=== PATIENT | male | born 1955 | race Caucasian/White ===

== ENCOUNTER 2017-09-06 10:23 | Emergency (ER) | payer OTHER, SELFPAY ==
[2017-09-06 10:30] VITALS: BP 174/84; PULSE 68; RESP 17; TEMP 35.9; O2SAT 99; BMI 24.1
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
== END 2017-09-06 11:08 | disposition home or self-care (01) ==
PROVIDERS: Emergency Provider Emergency Medicine; Family Provider Family Medicine; PCP Family Medicine
DX: M54.5 Low back pain (principal); V49.9XXA Car occupant (driver) (passenger) injured in unspecified traffic accident, initial encounter
CPT/HCPCS: 99282

== ENCOUNTER → 2017-09-10 10:12 | Outpatient (CLI) | payer OTHER, SELFPAY ==
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
== END ==
PROVIDERS: PCP Family Medicine; Visit Provider Family Medicine
DX: M50.30 Other cervical disc degeneration, unspecified cervical region (principal); M25.562 Pain in left knee; M17.12 Unilateral primary osteoarthritis, left knee; M51.36 Other intervertebral disc degeneration, lumbar region; M47.817 Spondylosis without myelopathy or radiculopathy, lumbosacral region; M54.9 Dorsalgia, unspecified
CPT/HCPCS: 72040; 72100; 73562

== ENCOUNTER → 2017-09-30 12:59 | Outpatient (CLI) | payer OTHER, SELFPAY ==
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
== END ==
PROVIDERS: PCP Family Medicine; Visit Provider Family Medicine
DX: M51.34 Other intervertebral disc degeneration, thoracic region (principal); M54.9 Dorsalgia, unspecified
CPT/HCPCS: 72072

== ENCOUNTER → 2017-12-08 09:12 | Outpatient (CLI) | payer OTHER, SELFPAY ==
[2017-12-08 10:19] LABS: Hemoglobin A1C% w Est Avg Glu 6.8 % (4.0-6.0)
== END ==
PROVIDERS: PCP Family Medicine; Visit Provider Family Medicine
DX: E11.9 Type 2 diabetes mellitus without complications (principal)
CPT/HCPCS: 36415; 83036

== ENCOUNTER 2017-12-18 13:00 | Outpatient (RCR) | payer OTHER, SELFPAY ==
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
== END 2018-04-21 12:24 ==
LOC: PHYS 13:00
PROVIDERS: Family Provider Family Medicine; PCP Family Medicine; Visit Provider Family Medicine
DX: S39.92XA Unspecified injury of lower back, initial encounter (principal); M25.569 Pain in unspecified knee; V89.2XXA Person injured in unspecified motor-vehicle accident, traffic, initial encounter
CPT/HCPCS: 97010; 97014; 97035; 97110; 97140; 97162; 97535; G0283

== ENCOUNTER → 2018-06-17 10:16 | Outpatient (CLI) | payer OTHER, SELFPAY ==
[2018-06-17 12:10] LABS: Add Manual Diff / Slide Review NO; Basophils Absolute Auto 0 /uL (0-100); Basophils Percent Auto 0.3 % (0-2); Eosinophils Absolute Auto 200 /uL (0-450); Eosinophils Percent Auto 2.3 % (2-4); Hematocrit 42.8 % (41-53); Hemoglobin 14.3 g/dL (13.5-17.5); Lymphocytes Absolute Auto 1700 /uL (1100-4500); Lymphocytes Percent Auto 25.1 % (25-40); Mean Corpuscular HGB Conc 33.5 % (30-36); Mean Corpuscular Volume 86.7 fL (80-100); Monocytes Absolute Auto 500 /uL (0-900); Monocytes Percent Auto 6.7 % (3-14); Neutrophils Absolute Auto 4500 /uL (1500-7000); Neutrophils Percent Auto 65.6 % (50-75); Platelet Count 224 X10^3/uL (150-400); Red Blood Cell Count 4.94 X10^6/uL (4.5-5.9); Red Cell Distribution Width 13.7 % (11.6-14.8); White Blood Cell Count 6.8 X10^3/uL (4.5-11.0)
[2018-06-17 12:45] LABS: Hemoglobin A1C% w Est Avg Glu 6.5 % (4.0-6.0)
[2018-06-17 12:47] LABS: Alanine Aminotransferase 48 IU/L (21-72); Albumin 4.5 g/dL (3.5-5.0); Alkaline Phosphatase 46 U/L (38-126); Aspartate Aminotransferase 34 IU/L (17-59); BUN Creatinine Ratio 28.9 (6-22); Bilirubin Total 0.6 mg/dL (0.2-1.3); Blood Urea Nitrogen 26 mg/dL (9-20); Calcium 9.5 mg/dL (8.4-10.2); Carbon Dioxide 28 mmol/L (22-32); Chloride 101 mmol/L (98-107); Cholesterol 208 mg/dL (140-199); Estimated Glomerular Filt Rate > 60.0 mL/min (>60); Globulin 2.3 g/dL (1.7-4.1); Glucose 137 mg/dL (80-110); HDL Cholesterol 51 mg/dL (40-60); HEMOLYSIS < 15 (0-50); LDL Cholesterol Calculated 131 mg/dL (<100); Sodium 138 mmol/L (137-145); Total Protein 6.8 g/dL (6.3-8.2); Triglycerides 128 mg/dL (35-150)
[2018-06-17 13:06] LABS: Prostate Specific Antigen Scrn 1.79 ng/mL (0.1-4.0); TSH w/ Reflex to FT4 1.57 uIU/mL (0.47-4.68)
== END ==
PROVIDERS: Family Provider Family Medicine; PCP Family Medicine; Visit Provider Family Medicine
DX: E11.9 Type 2 diabetes mellitus without complications (principal); I10 Essential (primary) hypertension; Z12.5 Encounter for screening for malignant neoplasm of prostate; Z13.29 Encounter for screening for other suspected endocrine disorder
CPT/HCPCS: 36415; 80053; 80061; 83036; 84443; 85025; G0103

== ENCOUNTER → 2018-11-19 13:59 | Outpatient (CLI) | payer OTHER, SELFPAY ==
[2018-11-19 14:35] LABS: Hemoglobin A1C% w Est Avg Glu 7.8 % (4.0-6.0)
== END ==
PROVIDERS: PCP Family Medicine; Visit Provider Family Medicine
DX: E11.9 Type 2 diabetes mellitus without complications (principal)
CPT/HCPCS: 36415; 83036

== ENCOUNTER → 2018-12-16 13:07 | Outpatient (CLI) | payer OTHER, SELFPAY | PROVIDERS: PCP Family Medicine; Visit Provider Family Medicine | DX: E29.1 Testicular hypofunction (principal) | CPT/HCPCS: 36415; 84403 ==

== ENCOUNTER → 2019-02-05 10:06 | Outpatient (CLI) | payer OTHER, SELFPAY ==
[2019-02-05 11:30] LABS: Hemoglobin A1C% w Est Avg Glu 7.8 % (4.0-6.0)
== END ==
PROVIDERS: PCP Family Medicine; Visit Provider Family Medicine
DX: E11.9 Type 2 diabetes mellitus without complications (principal)
CPT/HCPCS: 36415; 83036

== ENCOUNTER → 2019-08-20 10:03 | Outpatient (CLI) | payer MEDICARE, SELFPAY ==
[2019-08-20 10:44] LABS: Add Manual Diff / Slide Review NO; Basophils Absolute Auto 0 /uL (0-100); Basophils Percent Auto 0.3 % (0-2); Eosinophils Absolute Auto 200 /uL (0-450); Eosinophils Percent Auto 2.7 % (2-4); Hematocrit 39.8 % (41-53); Hemoglobin 13.6 g/dL (13.5-17.5); Lymphocytes Absolute Auto 1800 /uL (1100-4500); Lymphocytes Percent Auto 25.4 % (25-40); Mean Corpuscular HGB Conc 34.1 % (30-36); Mean Corpuscular Volume 84.8 fL (80-100); Monocytes Absolute Auto 600 /uL (0-900); Monocytes Percent Auto 7.8 % (3-14); Neutrophils Absolute Auto 4600 /uL (1500-7000); Neutrophils Percent Auto 63.8 % (50-75); Platelet Count 211 X10^3/uL (150-400); Red Cell Distribution Width 12.8 % (11.6-14.8); White Blood Cell Count 7.3 X10^3/uL (4.5-11.0)
[2019-08-20 11:25] LABS: Hemoglobin A1C% w Est Avg Glu 8.5 % (4.0-6.0)
[2019-08-20 11:32] LABS: Alanine Aminotransferase 27 IU/L (<50); Albumin 4.1 g/dL (3.5-5.0); Albumin Globulin Ratio 1.5 (1.0-2.8); Alkaline Phosphatase 69 U/L (38-126); Aspartate Aminotransferase 27 IU/L (17-59); BUN Creatinine Ratio 31.9 (6-22); Bilirubin Total 0.6 mg/dL (0.2-1.3); Blood Urea Nitrogen 36 mg/dL (9-20); Calcium 9.6 mg/dL (8.4-10.2); Carbon Dioxide 24 mmol/L (22-32); Chloride 105 mmol/L (98-107); Cholesterol 183 mg/dL (140-199); Estimated Glomerular Filt Rate > 60.0 mL/min (>60); Globulin 2.8 g/dL (1.7-4.1); Glucose 273 mg/dL (80-110); HDL Cholesterol 42 mg/dL (40-60); HEMOLYSIS < 15 (0-50); LDL Cholesterol Calculated 110 mg/dL (<100); Potassium 5.1 mmol/L (3.4-5.1); Sodium 137 mmol/L (137-145); Total Protein 6.9 g/dL (6.3-8.2); Triglycerides 156 mg/dL (35-150)
== END ==
PROVIDERS: PCP Family Medicine; Referring Provider Family Medicine; Visit Provider Family Medicine
DX: E11.9 Type 2 diabetes mellitus without complications (principal); I10 Essential (primary) hypertension
CPT/HCPCS: 36415; 80053; 80061; 82565; 83036; 84520; 85025

== ENCOUNTER → 2019-11-29 13:15 | Outpatient (CLI) | payer MEDICARE, SELFPAY ==
[2019-11-29 14:24] LABS: Hemoglobin A1C% w Est Avg Glu 9.2 % (4.0-6.0)
[2019-11-29 14:27] LABS: Blood Urea Nitrogen 25 mg/dL (9-20); Calcium 9.4 mg/dL (8.4-10.2); Carbon Dioxide 27 mmol/L (22-32); Chloride 101 mmol/L (98-107); Estimated Glomerular Filt Rate > 60.0 mL/min (>60); Glucose 261 mg/dL (80-110); HEMOLYSIS < 15 (0-50); Sodium 136 mmol/L (137-145)
[2019-11-29 14:28] LABS: Potassium 5.5 mmol/L (3.4-5.1)
== END ==
PROVIDERS: PCP Family Medicine; Referring Provider Family Medicine; Visit Provider Family Medicine
DX: E11.9 Type 2 diabetes mellitus without complications (principal)
CPT/HCPCS: 36415; 80048; 83036

== ENCOUNTER → 2020-06-02 15:04 | Outpatient (CLI) | payer MEDICARE, SELFPAY ==
[2020-06-02 17:04] LABS: Hemoglobin A1C% w Est Avg Glu 6.7 % (4.0-6.0)
== END ==
PROVIDERS: PCP Family Medicine; Referring Provider Family Medicine; Visit Provider Family Medicine
DX: E11.9 Type 2 diabetes mellitus without complications (principal)
CPT/HCPCS: 36415; 83036

== ENCOUNTER → 2020-07-13 16:04 | Outpatient (CLI) | payer MEDICARE, SELFPAY ==
[2020-07-13] MEDS: COVID-19 VACC #1, MRNA(MOD) 100 MCG/0.5 ML VIAL IM (16:09)
== END ==
PROVIDERS: PCP Family Medicine; Visit Provider Internal Medicine
DX: Z23 Encounter for immunization (principal)
CPT/HCPCS: 0011A; 91301

== ENCOUNTER → 2020-08-09 15:00 | Outpatient (CLI) | payer MEDICARE, SELFPAY ==
[2020-08-09] MEDS: COVID-19 VACC #2, MRNA(MOD) 100 MCG/0.5 ML VIAL IM (15:11)
== END ==
PROVIDERS: PCP Family Medicine; Visit Provider Internal Medicine
DX: Z23 Encounter for immunization (principal)
CPT/HCPCS: 0012A; 91301

== ENCOUNTER → 2020-11-23 14:09 | Outpatient (CLI) | payer MEDICARE, SELFPAY ==
[2020-11-23 16:16] LABS: Add Manual Diff / Slide Review NO; Basophils Absolute Auto 0 /uL (0-100); Basophils Percent Auto 0.4 % (0-2); Eosinophils Absolute Auto 100 /uL (0-450); Eosinophils Percent Auto 1.6 % (2-4); Hematocrit 38.8 % (41-53); Hemoglobin 12.6 g/dL (13.5-17.5); Lymphocytes Absolute Auto 1500 /uL (1100-4500); Lymphocytes Percent Auto 15.8 % (25-40); Mean Corpuscular HGB Conc 32.4 % (30-36); Mean Corpuscular Hemoglobin 27.5 PG (26-34); Monocytes Absolute Auto 700 /uL (0-900); Monocytes Percent Auto 7.4 % (3-14); Neutrophils Absolute Auto 6900 /uL (1500-7000); Neutrophils Percent Auto 74.8 % (50-75); Platelet Count 231 X10^3/uL (150-400); Red Blood Cell Count 4.56 X10^6/uL (4.5-5.9); Red Cell Distribution Width 12.6 % (11.6-14.8); White Blood Cell Count 9.3 X10^3/uL (4.5-11.0)
[2020-11-23 16:25] LABS: Hemoglobin A1C% w Est Avg Glu 9.6 % (4.0-6.0)
[2020-11-23 16:28] LABS: Alanine Aminotransferase 31 IU/L (<50); Albumin 4.5 g/dL (3.5-5.0); Albumin Globulin Ratio 1.6 (1.0-2.8); Alkaline Phosphatase 103 U/L (38-126); Aspartate Aminotransferase 31 IU/L (17-59); BUN Creatinine Ratio 15.7 (6-22); Bilirubin Total 0.5 mg/dL (0.2-1.3); Blood Urea Nitrogen 28 mg/dL (9-20); Calcium 9.6 mg/dL (8.4-10.2); Carbon Dioxide 21 mmol/L (22-32); Chloride 102 mmol/L (98-107); Cholesterol 247 mg/dL (140-199); Estimated Glomerular Filt Rate 38.8 mL/min (>60); Globulin 2.8 g/dL (1.7-4.1); Glucose 311 mg/dL (80-110); HDL Cholesterol 46 mg/dL (40-60); HEMOLYSIS < 15 (0-50); LDL Cholesterol Calculated 131 mg/dL (<100); Sodium 132 mmol/L (137-145); Total Protein 7.3 g/dL (6.3-8.2); Triglycerides 350 mg/dL (35-150)
[2020-11-23 16:29] LABS: Potassium 5.7 mmol/L (3.4-5.1)
[2020-11-23 16:33] LABS: Creatinine Urine Random 106.4 mg/dL
[2020-11-23 16:47] LABS: Microalbumin Urine Random < 0.6 mg/dL (0-1.6)
== END ==
PROVIDERS: PCP Family Medicine; Referring Provider Family Medicine; Visit Provider Family Medicine
DX: E11.9 Type 2 diabetes mellitus without complications (principal); Z79.4 Long term (current) use of insulin; E78.5 Hyperlipidemia, unspecified
CPT/HCPCS: 36415; 80053; 80061; 82043; 82570; 83036; 85025

== ENCOUNTER → 2021-02-01 15:44 | Outpatient (CLI) | payer MEDICARE, SELFPAY ==
[2021-02-01 17:37] LABS: Hematocrit 42.2 % (41-53); Hemoglobin 13.7 g/dL (13.5-17.5); Mean Corpuscular HGB Conc 32.5 % (30-36); Mean Corpuscular Hemoglobin 27.6 PG (26-34); Mean Corpuscular Volume 84.9 fL (80-100); Platelet Count 297 X10^3/uL (150-400); Red Blood Cell Count 4.97 X10^6/uL (4.5-5.9); Red Cell Distribution Width 14.7 % (11.6-14.8); White Blood Cell Count 8.8 X10^3/uL (4.5-11.0)
== END ==
PROVIDERS: PCP Family Medicine; Referring Provider Family Medicine; Visit Provider Family Medicine
DX: D64.9 Anemia, unspecified (principal); E11.9 Type 2 diabetes mellitus without complications; N17.9 Acute kidney failure, unspecified
CPT/HCPCS: 36415; 85027

== ENCOUNTER → 2021-03-07 12:25 | Outpatient (CLI) | payer MEDICARE, SELFPAY ==
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
== END ==
PROVIDERS: PCP Family Medicine; Referring Provider Family Medicine; Visit Provider Family Medicine
DX: E11.9 Type 2 diabetes mellitus without complications (principal); Z79.84 Long term (current) use of oral hypoglycemic drugs
CPT/HCPCS: 97802

== ENCOUNTER → 2021-03-21 16:02 | Outpatient (CLI) | payer MEDICARE, SELFPAY ==
[2021-03-21 17:13] LABS: Hemoglobin A1C% w Est Avg Glu 7.8 % (4.0-6.0)
[2021-03-21 17:41] LABS: BUN Creatinine Ratio 14.1 (6-22); Blood Urea Nitrogen 22 mg/dL (9-20); Calcium 9.9 mg/dL (8.4-10.2); Carbon Dioxide 27 mmol/L (22-32); Chloride 104 mmol/L (98-107); Estimated Glomerular Filt Rate 45.2 mL/min (>60); Glucose 182 mg/dL (80-110); HEMOLYSIS < 15 (0-50); Potassium 4.9 mmol/L (3.4-5.1); Sodium 138 mmol/L (137-145)
== END ==
PROVIDERS: PCP Family Medicine; Referring Provider Family Medicine; Visit Provider Family Medicine
DX: E11.9 Type 2 diabetes mellitus without complications (principal); N17.9 Acute kidney failure, unspecified; Z79.4 Long term (current) use of insulin
CPT/HCPCS: 36415; 80048; 83036

== ENCOUNTER → 2021-03-28 14:01 | Outpatient (CLI) | payer MEDICARE, SELFPAY ==
--- NOTE | 2021-04-03 13:22 | DIAB.FU ---
Follow-up Diabetes Education Assessment Name: Chavo Bates Date: 03/28/21 Time: 205-320p Dx: Type II Diabetes Vinecnt presents for DM follow-up with his , Kalyn. New BG indicate improved GFR while on Jardiance. Seems likely the SGLT2i helped improve his GFR. Despite this Vincent is interested in trying to d/c this medication. States he has reduced carb intake via fruit at night as discussed. Has questions about having a post exercise protein shake, protein is whey based and has added potassium and phos. Vincent tells me the CKD is most bothersome to him, more so than the DM. States he would like to know what he can do to improve kidney labs. Goes long periods of time without eating during the day per Kalyn . Physical Activity: Has begun an exercise program 4 days per week of 20-30 min of bike, 15-20min rower, + resistance exercise. Vincent is very motivated. Kalyn endorses feeling as though this is sustainable currently, but may not be over LT. [facility] will create a plan with Vincent to support his goals over the LT. Self-Monitoring Blood Glucose: BG have improved, but still having elevations. All FBG above ADA goal of 130 mg/dL. 2 significant other elevations. FB, 158, 165, 194, 172, 190, 133 Other readings, uncertain if pc or ac: 158, 155, 204, 15, 139, 138, 161, 188, 178 Diabetes Medications: Metformin 1000 BID Jardiance 10mg Pertinent Labs: Improved kidney labs and HgA1c. 03/2021 Cr: 1.56 H (improved) HgA1c: 7.8% H (improved) eGFR: 45.2 L (improved) 11/2020 HgA1c 9.6% H eGFR: 38.8 L Cr: 1.78 H k: 5.7 H T H cholesterol: 247 H LDL: 131 H Past Medical History: (Last Reviewed 12/01/17 @ 11:52 by Yani Pereira LPN) Ankle pain Anxiety Chicken pox Chronic back pain Depression (2009) Diabetes mellitus (2006) Resolved after weight loss Fractures Gout (1997) Hearing loss History of hand surgery (2000) Left Hyperlipidemia Hypogonadism Lumbar spine pain Osteoarthritis PTSD (post-traumatic stress disorder) (2014) Shoulder pain Status post surgical manipulation of ankle joint (2001) Right Tinnitus Intervention: This participant was very receptive. Provided appropriate educational handouts. Discussed the following topics: Recent blood sugar results and trends Medication management. Benefits of Jardiance for kidney and DM health. Review of general nutrition recommendations and current intake Physical activity plan and impact on blood sugars. Making it sustainable. Anticipating potential barriers. Animal proteins vs plant based for kidney health Label reading Kidney health: sodium intake, no need to restrict potassium or phos unless elevated but best to get from whole foods heart healthy fats Created SMART goals for patient self-care and success. Goals: Bring log book next visit- met Reduce fruit portion at evening snack- met Read food labels- in progress Check FBG and pc- new Food journal 1-2 days- new Follow-up: FUNMILAYO BROOKE follow-up in 4 weeks. Will focus more on nutrition next visit per his request. Rhonda Pierce RDN, CDCES Certified Diabetes Care and Two Needle Machine Operator P: [phone] Thank you for this referral
== END ==
PROVIDERS: PCP Family Medicine; Referring Provider Family Medicine; Visit Provider Family Medicine
DX: E11.9 Type 2 diabetes mellitus without complications (principal); Z79.84 Long term (current) use of oral hypoglycemic drugs
CPT/HCPCS: G0108

== ENCOUNTER → 2021-05-09 13:41 | Outpatient (CLI) | payer MEDICARE, SELFPAY ==
--- NOTE | 2021-05-10 16:59 | DIAB.MNTFU ---
Follow-up Diabetes Medical Nutrition Therapy Assessment Name: Chavo Bates Date: 05/09/21 Time: 210-310p Dx: Type II Diabetes Vincent presents for follow-up visit regarding T2DM with his , Kalyn. Kalyn expresses some reasonable concern about the amount of weight Vincent has lost. He endorses a 16# loss since March, mostly r/t being sick mid-March. This weight loss is equivalent to 8.7% since March, which is significant. Further, he displays physical signs of muscle wasting in temporal, clavicle, shoulder and interosseous regions, upon nutrition focused physical exam. Seems he is experiencing acute protein calorie malnutrition. Vincent is very motivated in his physical activity, however his nutritional intake seems below recommendation. Per his documentation, he often eats little or nothing in the morning. Most eating occurrences include 1-3 snacks and perhaps 1-2 meals per day. He may only eat twice per day, small portions. States the main barrier is his pain. He does not want to stand long to make food. He does not want to make a mess to clean. Also, he has limited appetite. Kalyn has been trying to cook more of his favorite meals to help increase intake. Having protein shake, but this brand is expensive. Use to keep a pain journal and felt this helped. Unsure if he wants to restart this. Feels motivated to increase muscle mass with physical activity. Anthropometrics: Ht: 6'2 Wt: 168# (reported) Physical Activity: Gym 4 days per week Self-Monitoring Blood Glucose: Recent readings trending down. He is concerned about his meter reliability. Has had this meter for >2 years. Recent FB, 141, 147, 136, 125, 140. Bolded elevated readings per ADA guidelines, but these are certainly an improvement from last visit. Recent readings later in the day: 122, 100, 169, 114, 136, 147, 136, 156. Diabetes Medications: Metformin 1000 BID Jardiance 10mg Pertinent Labs: 03/2021 Cr: 1.56 H (improved) HgA1c: 7.8% H (improved) eGFR: 45.2 L (improved) Past Medical History: (Last Reviewed 12/01/17 @ 11:52 by Yani Pereira LPN) Ankle pain Anxiety Chicken pox Chronic back pain Depression (2009) Diabetes mellitus (2006) Resolved after weight loss Fractures Gout (1997) Hearing loss History of hand surgery (2000) Left Hyperlipidemia Hypogonadism Lumbar spine pain Osteoarthritis PTSD (post-traumatic stress disorder) (2014) Shoulder pain Status post surgical manipulation of ankle joint (2001) Right Tinnitus Nutrition Rx: Carbohydrates: Meal:45g Snack:15-30g Saturated fat: 13g or less daily Sodium: 8291-0872 mg daily Nutrition Diagnosis: - Inconsistent carb intake r/t nutrition related knowledge deficit and appetite changes aeb diet recall of high and low carb intake and pt report- in progress - Predicted excessive saturated fat intake r/t nutrition knowledge deficit aeb diet recall - improved - Severe acute protein calorie malnutrition r/t limited kcal intake, increased activity, and recent illness aeb notable muscle wasting, 8.7% weight loss in <2 months, and pt report Intervention: This participant was very receptive. Provided appropriate educational handouts. Discussed the following topics: Blood sugar review and trends. Barriers to adequate protein kcal intake Importance of nutrition for muscle retention and building Recs on carb intake Journaling and pain management that has worked in the past Physical activity plan and progress Created SMART goals for patient self-care and success. Goals: Check FBG and pc- met Food journal 1-2 days- met Cont food journal- new Get a new meter rx- new Aim for consistent food intake, at least 3 eating occurrences per day- new Follow-up: FUNMILAYO BROOKE follow-up in 3-4 weeks Rhonda Pierce RDN, [facility]WARD[facility] Certified Diabetes Care and [employer] P: [phone] Thank you for this referral
== END ==
PROVIDERS: PCP Family Medicine; Referring Provider Family Medicine; Visit Provider Family Medicine
DX: E11.9 Type 2 diabetes mellitus without complications (principal); E43 Unspecified severe protein-calorie malnutrition; Z79.84 Long term (current) use of oral hypoglycemic drugs; Z71.3 Dietary counseling and surveillance; Z68.21 Body mass index [BMI] 21.0-21.9, adult
CPT/HCPCS: 97803

== ENCOUNTER → 2021-06-13 10:59 | Outpatient (CLI) | payer MEDICARE, SELFPAY ==
[2021-06-13 11:41] LABS: Hemoglobin A1C% w Est Avg Glu 6.5 % (4.0-6.0)
[2021-06-13 12:25] LABS: Phosphorous 2.8 mg/dL (2.3-3.7)
== END ==
PROVIDERS: PCP Family Medicine; Referring Provider Family Medicine; Visit Provider Family Medicine
DX: E11.9 Type 2 diabetes mellitus without complications (principal); D64.9 Anemia, unspecified; N17.9 Acute kidney failure, unspecified; Z79.4 Long term (current) use of insulin
CPT/HCPCS: 36415; 83036; 84100

== ENCOUNTER → 2022-01-30 11:58 | Outpatient (CLI) | payer MEDICARE, SELFPAY ==
[2022-01-30 12:40] LABS: Hemoglobin A1C% w Est Avg Glu 8.2 % (4.0-6.0)
[2022-01-30 13:13] LABS: Prostate Specific Antigen Scrn 1.93 ng/mL (0.1-4.0)
== END ==
PROVIDERS: PCP Family Medicine; Referring Provider Family Medicine; Visit Provider Family Medicine
DX: E11.9 Type 2 diabetes mellitus without complications (principal); Z12.5 Encounter for screening for malignant neoplasm of prostate; I10 Essential (primary) hypertension; Z79.4 Long term (current) use of insulin
CPT/HCPCS: 36415; 83036; G0103

== ENCOUNTER → 2022-05-03 10:19 | Outpatient (CLI) | payer MEDICARE, SELFPAY ==
[2022-05-03 12:02] LABS: Hemoglobin A1C% w Est Avg Glu 7.6 % (4.0-6.0)
[2022-05-03 12:15] LABS: Cholesterol 119 mg/dL (140-199); HDL Cholesterol 36 mg/dL (40-60); LDL Cholesterol Calculated 59 mg/dL (<100); Triglycerides 118 mg/dL (35-150)
[2022-05-03 12:16] LABS: Creatinine Urine Random 183.7 mg/dL
[2022-05-03 12:21] LABS: Microalbumin Urine Random 2.4 mg/dL (0-1.6)
== END ==
PROVIDERS: PCP Family Medicine; Referring Provider Family Medicine; Visit Provider Family Medicine
DX: E11.8 Type 2 diabetes mellitus with unspecified complications (principal)
CPT/HCPCS: 36415; 80061; 82043; 82570; 83036

== ENCOUNTER → 2022-10-31 10:54 | Outpatient (CLI) | payer MEDICARE, SELFPAY ==
[2022-10-31 11:22] LABS: Hemoglobin A1C% w Est Avg Glu 6.5 % (4.0-6.0)
[2022-10-31 11:38] LABS: BUN Creatinine Ratio 21.1 (6-22); Blood Urea Nitrogen 23 mg/dL (9-20); Calcium 9.2 mg/dL (8.4-10.2); Carbon Dioxide 32 mmol/L (22-32); Chloride 102 mmol/L (98-107); Estimated Glomerular Filt Rate > 60 mL/min (>60); Glucose 130 mg/dL (80-110); HEMOLYSIS < 15 (0-50); Potassium 5.2 mmol/L (3.4-5.1); Sodium 137 mmol/L (137-145)
[2022-10-31 15:20] LABS: Creatinine Urine Random 208.6 mg/dL
[2022-10-31 15:25] LABS: Microalbumi Creatinin Ratio Ur 3.8 ug/mg CR (<30); Microalbumin Urine Random 0.8 mg/dL (0-1.6)
== END ==
PROVIDERS: PCP Family Medicine; Referring Provider Family Medicine; Visit Provider Family Medicine
DX: E11.8 Type 2 diabetes mellitus with unspecified complications (principal); N18.31 Chronic kidney disease, stage 3a
CPT/HCPCS: 36415; 80048; 82043; 82570; 83036

== ENCOUNTER → 2024-01-29 14:55 | Outpatient (CLI) | payer MEDICARE, SELFPAY ==
[2024-01-29 15:36] LABS: Add Manual Diff / Slide Review NO; Basophils Absolute Auto 0 /uL (0-100); Basophils Percent Auto 0.2 % (0-2); Eosinophils Absolute Auto 100 /uL (0-450); Eosinophils Percent Auto 1.2 % (2-4); Hematocrit 41.7 % (41-53); Hemoglobin 14.1 g/dL (13.5-17.5); Lymphocytes Absolute Auto 1700 /uL (1100-4500); Lymphocytes Percent Auto 19.7 % (25-40); Mean Corpuscular HGB Conc 33.9 % (30-36); Mean Corpuscular Hemoglobin 29.9 PG (26-34); Mean Corpuscular Volume 88.4 fL (80-100); Monocytes Absolute Auto 500 /uL (0-900); Monocytes Percent Auto 5.7 % (3-14); Neutrophils Absolute Auto 6500 /uL (1500-7000); Neutrophils Percent Auto 73.2 % (50-75); Platelet Count 265 X10^3/uL (150-400); Red Blood Cell Count 4.72 X10^6/uL (4.5-5.9); Red Cell Distribution Width 13.7 % (11.6-14.8); White Blood Cell Count 8.8 X10^3/uL (4.5-11.0)
[2024-01-29 16:26] LABS: Hemoglobin A1C% w Est Avg Glu 7.2 % (4.0-6.0)
[2024-01-29 16:51] LABS: Creatinine Urine Random 73.33 mg/dL
[2024-01-29 17:35] LABS: Alanine Aminotransferase 26 IU/L (<50); Albumin 4.4 g/dL (3.5-5.0); Albumin Globulin Ratio 1.5 (1.0-2.8); Alkaline Phosphatase 80 U/L (38-126); Aspartate Aminotransferase 33 IU/L (17-59); BUN Creatinine Ratio 16.9 (6-22); Bilirubin Total 0.5 mg/dL (0.2-1.3); Blood Urea Nitrogen 22 mg/dL (9-20); Calcium 9.3 mg/dL (8.4-10.2); Carbon Dioxide 25 mmol/L (22-32); Chloride 101 mmol/L (98-107); Cholesterol 222 mg/dL (140-199); Estimated Glomerular Filt Rate > 60 mL/min (>60); Glucose 231 mg/dL (80-110); HDL Cholesterol 54 mg/dL (40-60); HEMOLYSIS < 15 (0-50); LDL Cholesterol Calculated 131 mg/dL (<100); Potassium 4.4 mmol/L (3.4-5.1); Sodium 134 mmol/L (137-145); Total Protein 7.4 g/dL (6.3-8.2); Triglycerides 187 mg/dL (35-150)
[2024-01-29 18:05] LABS: TSH w/ Reflex to FT4 2.21 uIU/mL (0.47-4.68)
== END ==
PROVIDERS: PCP Family Medicine; Referring Provider Family Medicine; Visit Provider Family Medicine
DX: E78.5 Hyperlipidemia, unspecified (principal); E11.8 Type 2 diabetes mellitus with unspecified complications; N18.31 Chronic kidney disease, stage 3a; I12.9 Hypertensive chronic kidney disease with stage 1 through stage 4 chronic kidney disease, or unspecified chronic kidney disease
CPT/HCPCS: 36415; 80053; 80061; 82043; 82570; 83036; 84443; 85025

== ENCOUNTER 2024-04-01 08:59 | Day surgery (SDC) | payer MEDICARE, SELFPAY ==
[2024-03-29 11:50] VITALS: BMI 22.7
[2024-04-01 09:32] VITALS: BP 159/81; PULSE 86; RESP 16; TEMP 36.8; O2SAT 99; BMI 22.8
[2024-04-01] MEDS: LACTATED RINGERS 1,000 ML 42 ML IV (09:37)
[2024-04-01] MEDS: INSULIN REGULAR 100 UNIT/ML 3 ML VIAL IV (10:01)
--- NOTE | 2024-04-01 10:20 | PM.PREOP ---
Pre-operative Note Interval Note History & Physical reviewed/Exam performed by Physician: Yes Changes to H&P: No
[2024-04-01] MEDS: CEFAZOLIN 2 GM/100 ML PREMIX 100 ML IV (10:26)
[2024-04-01] MEDS: BUPIVACAINE 0.5% W/ EPI (PF) 30 ML VIAL INJ (10:46)
[2024-04-01 11:09] VITALS: BP 137/98; PULSE 83; RESP 15; O2SAT 98
[2024-04-01 11:14] VITALS: BP 150/86; PULSE 85; RESP 14; TEMP 36.6; O2SAT 100
[2024-04-01 11:20] VITALS: BP 140/82; PULSE 81; RESP 16; O2SAT 98
[2024-04-01 11:22] VITALS: BP 140/83; TEMP 36.5
--- NOTE | 2024-04-06 11:05 | PM.OP.1 ---
Operative Date/Time/Diagnoses Date of procedure: 04/01/24 Time of procedure: 10:30 Pre-op diagnosis: Right knee medial meniscus tear and lateral meniscus tear, significant osteoarthritis Post-op diagnosis: same Procedure & Clinicians Procedure: Right knee arthroscopy with partial medial and lateral meniscectomy and removal of articular cartilage and loose body Same procedure as scheduled: Yes Indications: This is a 68-year-old gentleman with severe bilateral knee osteoarthritis. He would strongly prefer conservative treatment and does not want to consent to knee arthroplasty. He is having severe worsening symptoms into his right knee with worsening locking and ongoing substantial pain. He was brought to the operating room for a right knee arthroscopy with repair as indicated. The specific limits of the procedure were discussed in detail with the patient as he does have underlying severe osteoarthritic change. He would strongly prefer arthroscopy over knee arthroplasty. Options risks and benefits were discussed in detail. Surgeon: Belen Caballero Click Yes if Unassisted: Yes Anesthesia Type: General Operative Notes Findings: 1 suprapatellar pouch mobile 0.5 cm loose body, moderate synovitis, 2. Patellofemoral joint areas of grade 3 chondromalacia on the patella and trochlear groove. 3. Gutters no loose bodies mild synovitis 4. Medial compartment complex tear in the medial meniscus extending from the root of the medial meniscus into the posterior horn, areas of grade 3 to 4 chondromalacia especially in the medial compartment under the middle 3rd of the medial meniscus there was some eburnated bone 5. Notch normal ACL 6. Complex tear in the lateral meniscus with an unstable lateral meniscal flap, minimal lateral tibial plateau articular cartilage wear, areas of grade 3 chondromalacia lateral femoral condyle examination under anesthesia stable Closure Type: primary Specimen(s): none sent Estimated Blood Loss (mL): 10 Blood products transfused: none Procedure in detail: Patient was brought to the operating room he underwent the induction of an general anesthesia. His right lower extremity was prepped draped standard sterile fashion. A time-out was performed. He was given IV antibiotics. His examination under anesthesia was stable. A 3 portal arthroscopy was performed with intraoperative findings as listed above. There was a small amount of bleeding during the surgery and the tourniquet was elevated briefly to 250 mmHg for 8 minutes. There was a loose body noted in the suprapatellar pouch. It was meticulously removed. It was about 0.5 cm and fairly firm. He did have significant arthritic change especially in his lateral compartment and in the patellofemoral compartment. The intraoperative findings were as noted above. There was a tear in both the medial and lateral meniscus. A mechanical shaver was used to resect the meniscus back to stable meniscal rim. The articular cartilage was carefully checked. There was some areas of grade 4 chondromalacia especially in the medial compartment on the medial tibial plateau. A small amount of grossly loose articular cartilage was gently debrided. The residual rim was noted to be stable. The knee was meticulously irrigated with normal saline. The portals were closed with interrupted. Steri-Strips were applied Marcaine was injected and the wound was dressed sterilely. The patient tolerated the procedure well. He was transferred to recovery room in satisfactory condition. Complications: none Post-operative Condition: stable Disposition: Acute Care Plan for aftercare: Weight-bearing as tolerated on the right lower extremity okay to begin immediate range of motion and strengthening exercises. Keep incision dry for a few days do not soak for about 10 days. Progressive weight-bearing and tolerated and strengthening.
== END 2024-04-01 11:47 | disposition home or self-care (01) ==
PROVIDERS: PCP Family Medicine; Referring Provider Orthopaedic Surgery; Visit Provider Orthopaedic Surgery
PROC: (CPT 29870; principal; 2024-04-01 10:45)
DX: S83.231A Complex tear of medial meniscus, current injury, right knee, initial encounter (principal); S83.271A Complex tear of lateral meniscus, current injury, right knee, initial encounter; M17.0 Bilateral primary osteoarthritis of knee; M22.41 Chondromalacia patellae, right knee; M23.41 Loose body in knee, right knee; M65.98 Unspecified synovitis and tenosynovitis, other site; I10 Essential (primary) hypertension; E11.9 Type 2 diabetes mellitus without complications; Z79.84 Long term (current) use of oral hypoglycemic drugs
CPT/HCPCS: 29880; 82962; J0690; J2405; J2704; J2765; J3010

== ENCOUNTER → 2024-07-29 16:20 | Outpatient (CLI) | payer MEDICARE, SELFPAY ==
[2024-07-29 17:12] LABS: BUN Creatinine Ratio 22.2 (6-22); Blood Urea Nitrogen 26 mg/dL (9-20); Calcium 9.5 mg/dL (8.4-10.2); Carbon Dioxide 21 mmol/L (22-32); Chloride 104 mmol/L (98-107); Cholesterol 203 mg/dL (140-199); Estimated Glomerular Filt Rate > 60 mL/min (>60); Glucose 172 mg/dL (70-99); HDL Cholesterol 51 mg/dL (40-60); HEMOLYSIS < 15 (0-50); LDL Cholesterol Calculated 109 mg/dL (<100); Potassium 5.2 mmol/L (3.4-5.1); Sodium 137 mmol/L (137-145); Triglycerides 217 mg/dL (35-150)
== END ==
PROVIDERS: PCP Family Medicine; Referring Provider Family Medicine; Visit Provider Family Medicine
DX: E11.8 Type 2 diabetes mellitus with unspecified complications (principal); I10 Essential (primary) hypertension; E78.5 Hyperlipidemia, unspecified
CPT/HCPCS: 36415; 80048; 80061

== ENCOUNTER → 2025-01-21 11:21 | Outpatient (CLI) | payer MEDICARE, SELFPAY ==
[2025-01-21 12:08] LABS: Add Manual Diff / Slide Review NO; Hematocrit 41.4 % (41-53); Hemoglobin 13.9 g/dL (13.5-17.5); Lymphocytes Absolute Auto 1300 /uL (1100-4500); Mean Corpuscular HGB Conc 33.5 % (30-36); Mean Corpuscular Hemoglobin 29.4 PG (26-34); Mean Corpuscular Volume 87.8 fL (80-100); Platelet Count 260 X10^3/uL (150-400)
[2025-01-21 12:19] LABS: Hemoglobin A1C% w Est Avg Glu 7.3 % (4.0-6.0)
[2025-01-21 12:28] LABS: Alanine Aminotransferase 15 IU/L (<50); Albumin 4.4 g/dL (3.5-5.0); Albumin Globulin Ratio 1.7 (1.0-2.8); Alkaline Phosphatase 74 U/L (38-126); Blood Urea Nitrogen 27 mg/dL (9-20); Calcium 9.3 mg/dL (8.4-10.2); Carbon Dioxide 25 mmol/L (22-32); Chloride 103 mmol/L (98-107); Estimated Glomerular Filt Rate > 60 mL/min (>60); Globulin 2.6 g/dL (1.7-4.1); Glucose 235 mg/dL (70-99); HEMOLYSIS < 15 (0-50); Potassium 5.5 mmol/L (3.4-5.1); Sodium 137 mmol/L (137-145); Total Protein 7.0 g/dL (6.3-8.2)
[2025-01-21 13:00] LABS: TSH w/ Reflex to FT4 1.19 uIU/mL (0.47-4.68)
[2025-01-21 14:07] LABS: Microalbumi Creatinin Ratio Ur 6.0 ug/mg CR (<30)
== END ==
PROVIDERS: Family Provider Family Medicine; PCP Family Medicine; Referring Provider Family Medicine; Visit Provider Family Medicine
DX: Z12.5 Encounter for screening for malignant neoplasm of prostate (principal); N18.31 Chronic kidney disease, stage 3a; E11.8 Type 2 diabetes mellitus with unspecified complications; M15.9 Polyosteoarthritis, unspecified
CPT/HCPCS: 36415; 80053; 82043; 82570; 83036; 84443; 85025; G0103

== ENCOUNTER → 2025-01-27 08:43 | Outpatient (CLI) | payer MEDICARE, SELFPAY | LOC: PHYS 08:46 | PROVIDERS: Family Provider Family Medicine; PCP Family Medicine; Referring Provider Family Medicine; Visit Provider Family Medicine | DX: G56.01 Carpal tunnel syndrome, right upper limb (principal) | CPT/HCPCS: 95886; 95909 ==